=== PATIENT | male | born 1945 | race Hispanic/Latino ===

== ENCOUNTER → 2017-06-06 | Outpatient (CLI) | payer MEDICARE ==
--- NOTE | 2017-06-08 16:26 | RAD ---
EXAM DESCRIPTION: Hip,Right 2 Views CLINICAL HISTORY: 71 years Male, HIP PN COMPARISON: None. TECHNIQUE: AP and frog-leg views FINDINGS: Moderate osteoarthritis with superior joint space narrowing, periarticular sclerosis, and some lateral migration of the femoral head with respect to the acetabulum. No fractures. IMPRESSION: Moderate osteoarthritis No fractures Electronically signed by: Michael Souza 06/08/2017 4:25 PM CDT
--- NOTE | 2017-06-08 16:30 | RAD ---
EXAM DESCRIPTION: Pelvis CLINICAL HISTORY: 71 years Male, HIP PN COMPARISON: None. TECHNIQUE: AP pelvis FINDINGS: Status post left hip arthroplasty with well-seated acetabular and visualized femoral component. [id number] osteoarthritis right hip. No fractures. IMPRESSION: Left hip total arthroplasty [id number] osteoarthritis right hip No fractures Electronically signed by: Michael Souza 06/08/2017 4:29 PM CDT
== END | disposition home or self-care (01) ==
LOC: RAD 08:40
PROVIDERS: ATTEND Orthopaedic Surgery
DX: M25.551 Pain in right hip (principal)

== ENCOUNTER → 2017-06-20 | Outpatient (CLI) | payer MEDICARE | END | disposition home or self-care (01) | LOC: RESP 07:46 | PROVIDERS: ATTEND Orthopaedic Surgery | DX: Z01.818 Encounter for other preprocedural examination (principal) ==

== ENCOUNTER 2017-07-02 07:00 | Inpatient (IN) | payer MEDICARE, MEDICAID ==
--- NOTE | 2017-07-01 10:48 | HP ---
CHIEF COMPLAINT: Right hip pain. HISTORY OF PRESENT ILLNESS: Mr. Patel is a 71-year-old male with a history of pain in the right hip. It has been getting significantly worse. He has had left total hip replacement. He has failed conservative measures, and as such as requested operative intervention. He has occasional radiation of pain to the buttock region, but no radiation distally and no neurologic symptoms. He has never had any trauma related to this. Because of the ongoing symptoms, he has requested operative intervention. After discussing the risks, benefits and alternatives to that, the patient has given informed consent. PAST SURGICAL HISTORY: 1. Left total hip replacement. MEDICATIONS: 1. Lansoprazole. 2. Diclofenac. ALLERGIES: NO KNOWN DRUG ALLERGIES. CODE STATUS: Full code. IMMUNIZATIONS: Up to date. SOCIAL HISTORY: The patient does not drink, smoke or use any illicit drugs. FAMILY HISTORY: None pertinent to today's complaint. REVIEW OF SYSTEMS: Negative except as indicated in the History of Present Illness. PHYSICAL EXAMINATION: VITAL SIGNS: Blood pressure 137/87. Pulse 52. Height 5'6". MENTAL STATUS: The patient is awake, alert, and is able to give a good history and participate in the physical. The patient is oriented to person, place and time. SKIN: Normal tone and turgor. HEENT: Normocephalic, atraumatic. Pupils equal, round and reactive. Mucosal membranes are moist. NECK: Normal range of motion. No thyromegaly, no lymphadenopathy. CHEST: Normal respiratory excursion. CARDIAC: Regular rate and rhythm. No murmurs, rubs or gallops. MUSCULOSKELETAL: Bilateral upper extremities show full active range of motion. He has intact sensation throughout and they are warm and well perfused. Strength is 5/5. There is no deformity and no crepitus with range of motion. The left lower extremity shows flexion to about 100 degrees and abduction to about 20 to 30 degrees of the hip. He has essentially painless internal rotation to 20 degrees and external rotation to about 40 degrees. There is no malalignment. Sensation is intact. Strength is 5/5.. The right hip shows 0 degrees of internal rotation and he has obligate external rotation. He has severe tenderness with any attempted internal rotation. He has pain at 20 degrees of external rotation. He lacks about 5 to 10 degrees of terminal extension of the hip secondary to pain. He walks with a severe antalgic gait and is using a cane today. IMAGING: X-rays show severe arthritis of the hip. ASSESSMENT: 1. Osteoarthritis of the hip. PLAN: The plan at this point is for total hip arthroplasty. Through an student records coordinator, we have discussed the risks, benefits, and alternatives to that and the patient has given informed consent. #[id number] [facility]
[~2017-07-02 07:00] MED LIST: ACETAMINOPHEN IV 1000MG 100 ML ONE; BUPIVACAINE 0.25% INJ 30 ML VIAL INJ ONE; BUPIVACAINE 0.25% W/EPI 50 ML VIAL INJ ONE; LACTATED RINGERS 1,000 ML ONE; MIDAZOLAM INJ 2 MG/2 ML VIAL ONE; MORPHINE SULF *EPIDURAL* 1 MG/ML VIAL ONE; ROCURONIUM BROMIDE 10 MG/ML VIAL ONE; SODIUM CHL 0.9% 50ML MIN-BAG+ 50 ML IVPB ONE; SODIUM CHLORIDE 0.9% 100ML 100 ML IVPB ONE; SODIUM CHLORIDE 0.9% 250ML 250 ML ONE; TRANEXAMIC ACID 1,000 MG/10 ML VIAL ONE; VANCOMYCIN HCL INJ 1,000 MG VIAL IVPB ONE; ceFAZolin SODIUM 1 GM VIAL ONE; fentaNYL CITRATE INJ 50 MCG/ML AMP ONE
[2017-07-02] MEDS ORDERED: ELECTROLYTE-A 1,000 ML IVS ONE ×3 (07:54→08:56)
[2017-07-02] MEDS ORDERED: SODIUM CHLORIDE 0.9% 1000ML 1,000 ML ONE (08:38)
[2017-07-02] MEDS ORDERED: LIDOCAINE 1% 10 ML VIAL INJ ONE (10:00)
[2017-07-02] MEDS ORDERED: raNITIdine HCL INJ 25 MG/ML VIAL IV ONE (10:00)
[2017-07-02] MEDS ORDERED: PROPOFOL 200 MG/20 ML VIAL IV ONE (10:00)
[2017-07-02] MEDS ORDERED: DEXAMETHASONE INJ 10 MG/ML VIAL IV ONE (10:00)
[2017-07-02] MEDS ORDERED: ePHEDrine SULF 50 MG/ML IV ONE (10:00)
[2017-07-02] MEDS ORDERED: PROMETHAZINE HCL INJ 25 MG in SODIUM CHLORIDE 0.9% 50ML 50 ML IVPB PRN (10:02)
[2017-07-02] MEDS ORDERED: TEMAZEPAM 15 MG CAP PO PRN (10:02)
[2017-07-02] MEDS ORDERED: TRANEXAMIC ACID INJ 1,000 MG in SODIUM CHLORIDE 0.9% 100ML 100 ML IVPB ONE (10:02)
[2017-07-02] MEDS ORDERED: BISACODYL SUPPOSITORY 10 MG PR PRN (10:02)
[2017-07-02] MEDS ORDERED: CYCLOBENZAPRINE HCL 10 MG TAB PO PRN (10:02)
[2017-07-02] MEDS ORDERED: traMADol HCL 50 MG TAB PO PRN (10:02)
[2017-07-02] MEDS ORDERED: ACETAMINOPHEN 500 MG TAB PO PRN (10:02)
[2017-07-02] MEDS ORDERED: DEX 5% W/NACL 0.45% 1000ML 1,000 ML IVS PRN (10:02)
[2017-07-02] MEDS ORDERED: MORPHINE SULFATE INJ 10 MG/ML VIAL IV PRN (10:02)
[2017-07-02] MEDS ORDERED: NALOXONE HCL INJ 0.4 MG/ML VIAL IV PRN (10:02)
[2017-07-02] MEDS ORDERED: PROMETHAZINE HCL INJ 12.5 MG in SODIUM CHLORIDE 0.9% 50ML 50 ML IVPB PRN (10:02)
[2017-07-02] MEDS ORDERED: BENZOCAINE-MENTH LOZ (CEPACOL) 1 EA LOZ MT PRN (10:02)
[2017-07-02] MEDS ORDERED: ACETAMINOPHEN 325 MG TAB PO PRN (10:02)
[2017-07-02] MEDS ORDERED: ZOLPIDEM TARTRATE 5 MG TAB PO PRN (10:02)
[2017-07-02] MEDS ORDERED: MORPHINE SULFATE INJ 10 MG/ML VIAL IM PRN (10:02)
[2017-07-02] MEDS ORDERED: SODIUM CHLORIDE 0.9% (FLUSH) 10 ML SYG IV PRN (10:02)
[2017-07-02] MEDS ORDERED: MAGNESIUM HYDROXIDE 30 ML UD PO PRN (10:02)
[2017-07-02] MEDS ORDERED: ONDANSETRON INJ 4 MG/2 ML VIAL IV PRN (10:02)
[2017-07-02] MEDS ORDERED: MORPHINE PCA 1 MG/ML 100ML 1 BAG in PREMIX BAG 1 BAG IVPB SCH (10:30)
[2017-07-02] MEDS ORDERED: IV SET AND CAP CHANGE INJ INJ SCH (10:30)
--- NOTE | 2017-07-02 13:16 | CONS ---
SUPERVISING PHYSICIAN: Guerrero Chua MD DATE OF CONSULTATION: 07/02/17 CHIEF COMPLAINT: Right hip pain. HISTORY OF PRESENT ILLNESS: This is a 71-year-old male patient with a history of pain in his right hip. It has significantly worsened over the last few years. He has previously had a left total hip replacement. He failed conservative measures and requested operative intervention for right total hip replacement to be done per Dr. Ludwig Epsetin, orthopedic surgeon. His surgical procedure went well with the exception that he did have to have 2 units of packed red blood cells, and I am seeing him postoperatively on the Medical/ Surgical Floor. PAST MEDICAL HISTORY: 1. Gastritis. 2. Arthritis. PAST SURGICAL HISTORY: 1. Left total hip replacement. 2. Right total hip replacement today. CURRENT MEDICATIONS: Per the EMR and awaiting verification. ALLERGIES: NO KNOWN DRUG ALLERGIES. SOCIAL HISTORY: He denies any tobacco use, ETOH use or illicit drug use. FAMILY HISTORY: NONCONTRIBUTORY. REVIEW OF SYSTEMS: Negative except as per history of present illness. PHYSICAL EXAMINATION: VITAL SIGNS: Afebrile. Heart rate 74. Blood pressure 125/74. Respiratory rate 16. O2 saturation 99% on room air. GENERAL: This is a 71-year-old male patient who is lying in his hospital bed. He is in no acute distress. He can answer in Palestinian simple yes/no questions. Otherwise, his family is there to translate into Czech. HEENT: Normocephalic, atraumatic. Pupils are equal and reactive. Oropharynx is clear. NECK: Supple without mass. RESPIRATORY: Clear to auscultation bilaterally. CARDIOVASCULAR: Regular rate and rhythm. ABDOMEN: Soft, nondistended, nontender. Bowel sounds are positive. EXTREMITIES: He has a dressing to his right hip that is dry and intact. Bilateral pedal pulses are palpable at +2. There is no edema. NEUROLOGIC: Awake, alert and oriented times three. LABORATORY: Hemoglobin 12.1, hematocrit 36.5. All other labs and films have been reviewed via the EMR. ASSESSMENT: 1. Osteoarthritis of the right hip, failed conservative measures with a right total hip replacement per Dr. Ludwig Epstein, orthopedic surgeon, postoperative day 0. 2. Gastritis. 3. Anemia from operative blood loss requiring 2 units of packed red blood cells. PLAN: We will continue present supportive care. Orthopedic issues will be per Dr. Epstein. He will be his strengthening and conditioning tomorrow with physical therapy. I will re-start his home medications. I have encouraged good pulmonary hygiene as well as use of his incentive spirometry. We will continue to monitor the patient closely and follow as needed. Dr. Chua is the collaborating physician and available for consultation. #[id number] [facility]
[2017-07-02] MEDS ORDERED: CEFAZOLIN SODIUM 2 GRAMS IV 50 ML IVPB ONE ×2 (15:55→19:43)
[2017-07-02] MEDS: CEFAZOLIN SODIUM 2 GRAMS IV 2 GM in PREMIX BAG 1 BAG IVPB SCH ×2 (16:00→23:49)
[2017-07-02] MEDS ORDERED: VANCOMYCIN HCL INJ 1,000 MG VIAL IVPB ONE ×2 (18:28→19:43)
[2017-07-02] MEDS ORDERED: SODIUM CHLORIDE 0.9% 250ML 250 ML ONE ×2 (18:28→19:42)
[2017-07-02] MEDS: VANCOMYCIN HCL INJ 1,000 MG in SODIUM CHLORIDE 0.9% 250ML 250 ML IVPB SCH (18:36)
[2017-07-02] MEDS: CELECOXIB 100 MG CAP PO SCH (18:36)
[2017-07-02] MEDS ORDERED: DOCUSATE CALCIUM 240 MG CAP ONE (19:42)
[2017-07-02] MEDS ORDERED: ENOXAPARIN SODIUM 30 MG/0.3 ML SYG SUBCU ONE (19:43)
[2017-07-02] MEDS: DOCUSATE CALCIUM 240 MG CAP PO SCH (20:43)
[2017-07-02] MEDS: ENOXAPARIN SODIUM 30 MG/0.3 ML SYG SUBCU SCH (22:45)
[2017-07-02] MEDS: ALUMINUM & MAGNESIUM HYDROXIDE 30 ML UD PO PRN (22:52)
[2017-07-03] MEDS: ALUMINUM & MAGNESIUM HYDROXIDE 30 ML UD PO PRN (05:13)
[2017-07-03] MEDS: VANCOMYCIN HCL INJ 1,000 MG in SODIUM CHLORIDE 0.9% 250ML 250 ML IVPB SCH (06:01)
[2017-07-03] MEDS ORDERED: CEFAZOLIN SODIUM 2 GRAMS IV 50 ML IVPB ONE (07:52)
[2017-07-03] MEDS: CELECOXIB 100 MG CAP PO SCH ×2 (08:21→17:11)
[2017-07-03] MEDS: CEFAZOLIN SODIUM 2 GRAMS IV 2 GM in PREMIX BAG 1 BAG IVPB SCH (08:21)
[2017-07-03] MEDS ORDERED: chlorproMAZINE HCL 25 MG TAB PO PRN ×2 (08:31→11:08)
[2017-07-03] MEDS ORDERED: LANSOPRAZOLE 30 MG PO SCH (09:00)
[2017-07-03] MEDS ORDERED: OMEPRAZOLE CAP 20 MG CAP PO SCH (09:00)
[2017-07-03] MEDS: MAGNESIUM OXIDE 400 MG TAB PO SCH (09:31)
[2017-07-03] MEDS: ENOXAPARIN SODIUM 30 MG/0.3 ML SYG SUBCU SCH ×2 (11:56→23:18)
[2017-07-03] MEDS: SODIUM CHLORIDE 0.9% (FLUSH) 10 ML SYG IV SCH ×2 (11:56→21:04)
[2017-07-03] MEDS: HYDROcodone 5MG/APAP 325MG 1 EA TAB PO PRN (12:42)
[2017-07-03] MEDS ORDERED: ALUM & MAG HYDROX-SIMETHICONE 30 ML UD PO PRN (12:50)
--- NOTE | 2017-07-03 13:36 | PN ---
SUPERVISING PHYSICIAN: Guerrero Chua MD DATE: 07/03/17 SUBJECTIVE: The patient is sitting up in a chair in his room. His chief complaint is hiccups and some indigestion. Otherwise, no complaints of nausea, vomiting, diarrhea. He has actually had very little pain medication since surgery and has walked in the hallway several times this morning. OBJECTIVE: VITAL SIGNS: Temperature 99.2. Pulse rate 86. Blood pressure 97/ 54. Respiratory rate 18. O2 saturation 97% on room air. LUNGS: Clear to auscultation bilaterally. CARDIAC: Regular rate and rhythm. ABDOMEN: Soft, nondistended, nontender. Bowel sounds are positive. EXTREMITIES: There is a dressing to his right hip that is dry and intact. Bilateral pedal pulses are palpable at +2. NEUROLOGIC: Awake, alert and oriented times three. LABORATORY: Hemoglobin 10.4, hematocrit 31.1. All other labs and films have been reviewed via the EMR. ASSESSMENT: 1. Osteoarthritis of the right hip, failed conservative measures with a right total hip replacement per Dr. Ludwig Epstein, orthopedic surgeon, postoperative day 1. 2. History of gastritis. 3. Anemia from operative blood loss requiring 2 units of packed red blood cells. 4. Hiccups. 5. Some acid reflux. PLAN: We will continue present supportive care. Orthopedic issues will be per Dr. Epstein. He will continue with his physical therapy for strengthening and conditioning. I have increased his Thorazine for his hiccups as well as given him some Mylanta and Pepcid for his indigestion. I have also ordered a hemoglobin and hematocrit for in the morning. I have encouraged good pulmonary hygiene as well as talked to his family about him using his incentive spirometry. Otherwise, we will continue to monitor the patient closely and follow as needed. Dr. Chua is the collaborating physician and available for consultation. #[id number] [facility]
--- NOTE | 2017-07-03 16:39 | RAD ---
EXAM DESCRIPTION: Hip,Right 2 Views CLINICAL HISTORY: 71 years, Male, post op COMPARISON: None TECHNIQUE: AP and frog leg lateral views of the hip FINDINGS: Total hip replacement in excellent position. No complicating operative process observed. IMPRESSION: 1. Postop no complication Electronically signed by: Daniel Love MD 07/03/2017 4:38 PM CDT
--- NOTE | 2017-07-03 16:42 | RAD ---
EXAM DESCRIPTION: AP pelvis, single view CLINICAL HISTORY: Right total hip arthroplasty FINDINGS/ IMPRESSION: Bilateral total hip arthroplasty. No periprosthetic fracture or osteolysis. Air in the soft tissues on the right from recent surgery. No radiopaque foreign body Electronically signed by: Silas Edward MD 07/03/2017 4:39 PM CDT
[2017-07-03] MEDS: FAMOTIDINE 20 MG TAB PO SCH (17:12)
[2017-07-03] MEDS: DOCUSATE CALCIUM 240 MG CAP PO SCH (20:45)
[2017-07-04] MEDS: FAMOTIDINE 20 MG TAB PO SCH ×2 (06:30→16:42)
[2017-07-04] MEDS: CELECOXIB 100 MG CAP PO SCH ×2 (07:45→16:42)
--- NOTE | 2017-07-04 08:33 | OP ---
DATE OF PROCEDURE: 07/02/17 PREOPERATIVE DIAGNOSIS: 1. Right hip osteoarthritis. POSTOPERATIVE DIAGNOSIS: 1. Right hip osteoarthritis. PROCEDURE: 1. Right total hip arthroplasty. SURGEON: Ludwig Epstein MD. PIPE LINE REPAIRER: Ra Pickard CST, SA-C. ANESTHESIA: General. COMPLICATIONS: None. FINDINGS: Severe osteoarthritis of the hip. INDICATION: Mr. Patel has a history of severe hip pain. He has had this going on for years and has actually had contralateral total hip replacement. He currently complains of pain that is predominantly in the groin. Because of failure of conservative measures, he has requested operative intervention. After discussing the risks, benefits and alternatives to that, the patient has given informed consent for total hip arthroplasty. PROCEDURE: The patient was brought to the Operating Room and placed in supine position. General anesthesia was induced and the patient was turned into the lateral decubitus position. The patient's leg and hemipelvis were sterilely prepped and draped. Following prepping and draping, an incision was made at the level of the greater trochanter and extending both proximally and distally. The iliotibial band was identified and split in line along the course of its fibers. The abductor musculature was identified. The anterior one-third of the abductor musculature was elevated. Capsulotomy was performed. The hip was dislocated and primary femoral neck cut was made. The acetabular labrum and remaining soft tissue around the acetabular region was removed. Sequential reaming was performed and a size 51 reamer fit well. A size 52 trial was impacted into place and was found to be stable. That cup was removed and bone graft that had been harvested from the head was placed into the acetabulum. Following that, the final cup was impacted into place. After impaction of the cup, three screws were used to augment the fixation. The polyethylene liner was then impacted. Attention was then focused on the femur. The final femoral neck cut was made. Sequential reaming and broaching were used and a size 8 was found to fit well. Following impaction of that, the hip was reduced and taken through a range of motion. The leg lengths appeared to be equal and there was no evidence any impending dislocation or impingement. The trial component was removed and the final component was impacted into place. The hip was reduced and again taken through a range of motion. Following that, the wound was very thoroughly irrigated and the abductor musculature was reapproximated to the anatomic position. The iliotibial band was closed. The skin was closed with a combination of running and interrupted subcuticular stitches. Sterile dressings were placed. The patient was awoken from anesthesia. The patient was taken to the Recovery Room. POSTOPERATIVE INSTRUCTIONS: The patient will be partial weightbearing on postoperative day 1. COMPONENTS: Dinora size 8 femur, size 52 Tritanium cup, and 10 degree liner. #[id number] [facility] [place]
[2017-07-04] MEDS: MAGNESIUM OXIDE 400 MG TAB PO SCH (08:34)
[2017-07-04] MEDS ORDERED: SODIUM CHLORIDE 0.9% (FLUSH) 10 ML SYG IV SCH (09:00)
[2017-07-04] MEDS: PANTOPRAZOLE SODIUM TAB 40 MG PO SCH (11:07)
[2017-07-04] MEDS: ENOXAPARIN SODIUM 30 MG/0.3 ML SYG SUBCU SCH ×2 (11:07→23:23)
--- NOTE | 2017-07-04 19:35 | PN ---
DATE: 07/04/17 SUPERVISING PHYSICIAN: Guerrero Chua M.D. SUBJECTIVE: The patient is lying in his bed. His family is at the bedside. He has no complaints of pain, nausea, vomiting, diarrhea or constipation. He had hiccups yesterday as well as acid indigestion and he feels much better today. OBJECTIVE: VITAL SIGNS: He is afebrile, heart rate 89, blood pressure 97/61, respiratory rate 18, O2 sat is 96% on room air. RESPIRATORY: Essentially clear to auscultation bilaterally. CARDIAC: Regular rate and rhythm. ABDOMEN: Soft, nondistended, non-tender. Bowel sounds are positive. EXTREMITIES: Bilateral pedal pulses are palpable at +2. The dressing to his right hip is dry and intact. NEUROLOGIC: He is awake, alert and oriented times three. LABORATORY: Hemoglobin has dropped to 9.3 from 10.4 yesterday and his hematocrit has dropped from 31.1 to 26.9 today. All other labs and films have been reviewed via the EMR. ASSESSMENT: 1. Osteoarthritis of the right hip failed conservative measures with a right total hip replacement per Dr. Ludwig Epstein, orthopedic surgeon, postoperative day #2. 2. History of gastritis. 3. Anemia from operative blood loss requiring 2 units of packed red blood cells and his H&H continues to slowly drop. 4. Hiccups that have mostly resolved. 5. Acid reflux. PLAN: We will continue present supportive care. Orthopedic issues will be per Dr. Epstein. The patient will continue with his physical therapy for strengthening and conditioning. I have again ordered an H&H in the morning to make sure that has stabilized. Hopefully he can be discharged home tomorrow with [facility] and physical therapy. I continue to encourage good pulmonary hygiene. His family said that the Pepcid worked very well on him and would like to make sure he goes home on a prescription for that medication. Otherwise we will continue to monitor him closely and follow as needed. Dr. Chua is the collaborating physician available for consultation. #[id number] [facility]
[2017-07-04] MEDS: SODIUM CHLORIDE 0.9% (FLUSH) 10 ML SYG IV SCH (20:57)
[2017-07-04] MEDS: DOCUSATE CALCIUM 240 MG CAP PO SCH (20:57)
[2017-07-04] MEDS: HYDROcodone 5MG/APAP 325MG 1 EA TAB PO PRN (20:59)
[2017-07-05] MEDS: FAMOTIDINE 20 MG TAB PO SCH (06:22)
[2017-07-05] MEDS: PANTOPRAZOLE SODIUM TAB 40 MG PO SCH (06:22)
[2017-07-05] MEDS: CELECOXIB 100 MG CAP PO SCH (08:05)
[2017-07-05] MEDS: MAGNESIUM OXIDE 400 MG TAB PO SCH (10:17)
[2017-07-05 10:21] VITALS: BP 110/73; TEMP 97.7; O2SAT 100
--- NOTE | 2017-07-05 19:51 | DS ---
SUPERVISING PHYSICIAN: Guerrero Chua M.D. DISCHARGE DIAGNOSIS: 1. Osteoarthritis of the right hip failed conservative measures with a right total hip replacement per Dr. Ludwig Epstein, orthopedic surgeon, postoperative day #3. 2. History of gastritis. 3. Anemia from operative blood loss requiring 2 units of packed red blood cells and his H&H has slightly improved this morning. 4. Hiccups that have mostly resolved. 5. Acid reflux. HISTORY OF PRESENT ILLNESS: This is a 71 year-old male patient with a significant history of pain in his right hip. It has worsened over the last few years. He had previously had a left total hip replacement. He failed conservative measures and requested operative intervention for right total hip replacement that was done by Dr. Ludwig Epstein, orthopedic surgeon, on the day of admission. The surgical procedure went well with the exception that he did have some blood loss due to the surgical procedure and required 2 units of packed red blood cells. HOSPITAL COURSE: Postoperatively, his physical therapy progressed very well. He had very minimal complaints of pain. He did have an episode of hiccups that required some Thorazine for relief. He also had some acid reflux symptoms that we added Pepcid to his Protonix regimen. He has continued with his physical therapy for strengthening and conditioning. Yesterday his hemoglobin had dropped to 8.8, but this morning it is now 9.3. He will be discharged home. DISCHARGE PLAN: The patient will be discharged home in stable condition. He is to followup with Dr. Epstein as previously recommended. He will continue at home with [facility] and physical therapy. He is to resume his previous diet and he is to increase his activity as per instructions of Physical Therapy. He has received a prescription for his Xarelto for a total of 35 days of anticoagulant therapy. He will also be sent home with his pain medications as well as some Flexeril. I have also given him a prescription for Pepcid. He is to call Dr. Epstein's office or return to the hospital for any problems or complications. DISCHARGE MEDICATIONS: 1. Lansoprazole. 2. Cyclobenzaprine. 3. Surfak. 4. Pepcid. 5. Hydrocodone. 6. Xarelto. Dr. Chua is the collaborating physician available for consultation. #[id number] [facility]
[2017-07-05] MEDS ORDERED: MAGNESIUM HYDROXIDE 30 ML UD PO ONE (21:00)
[2017-07-05] MEDS ORDERED: BISACODYL SUPPOSITORY 10 MG PR ONE (21:00)
== END 2017-07-05 13:20 | disposition home health service (06) | DRG 470 ==
LOC: AMB 07:00 → UNDOADMIN 11:20 → MS 11:20
PROVIDERS: ADMIT Orthopaedic Surgery; ATTEND Nurse Practitioner Acute Care
PROC: 30233N1 Transfusion of Nonautologous Red Blood Cells into Peripheral Vein, Percutaneous Approach (ICD-10-PCS; 2017-07-02)
PROC: 0SR902A Replacement of Right Hip Joint with Metal on Polyethylene Synthetic Substitute, Uncemented, Open Approach (ICD-10-PCS; principal; 2017-07-02 07:00)
DX: M16.11 Unilateral primary osteoarthritis, right hip (principal); D62 Acute posthemorrhagic anemia; R06.6 Hiccough; K21.9 Gastro-esophageal reflux disease without esophagitis; Z79.899 Other long term (current) drug therapy; Z96.642 Presence of left artificial hip joint

== ENCOUNTER → 2018-02-03 | Outpatient (CLI) | payer MEDICARE, MEDICAID ==
--- NOTE | 2018-02-04 09:50 | RAD ---
EXAM DESCRIPTION: Lumbar Spine 3 Views CLINICAL HISTORY: 72 years Male, LOW BACK PAIN COMPARISON: Radiograph of the lumbar spine dated 05/10/2013. TECHNIQUE: AP and lateral radiographs of the lumbar spine were obtained. FINDINGS: There is straightening of the normal lordotic curvature of the lumbar spine. The vertebral body heights are well-maintained with no acute compression. Multilevel degenerative disc disease is noted, worse at L5-S1 level. Multilevel facet arthropathy is also identified. No spondylolysis or spondylolisthesis. Incidental note is made of mild constipation. 2 cm peripherally calcified lesion is identified in the left upper quadrant. This corresponds to the peripherally calcified cyst of the left kidney seen on prior CT. IMPRESSION: Multilevel degenerative disc disease and facet arthropathy is noted, worse at L5-S1 level. These changes appear to have progressed compared to prior radiographs dated 05/10/2013. Electronically signed by: Lilia Lyn MD 02/04/2018 9:49 AM CDT
== END ==
LOC: RAD 16:27
PROVIDERS: ATTEND Nurse Practitioner Family
DX: M51.36 Other intervertebral disc degeneration, lumbar region (principal); M54.5 Low back pain

== ENCOUNTER → 2018-05-20 | Outpatient (CLI) | payer MEDICARE, MEDICAID ==
--- NOTE | 2018-05-20 09:13 | RAD ---
EXAM DESCRIPTION: Hip Bilateral CLINICAL HISTORY: HIP PAIN COMPARISON: July 02, 2017 And June 06, 2017 FINDINGS: 2 views of both hips are obtained. Noncemented right total hip arthroplasty is seen with 2 screws fixating the acetabular component. No acute fracture or dislocation is seen. Heterotopic ossification lateral to the greater trochanter is new from previous. Left hip bipolar noncemented total hip arthroplasty seen in place with 3 screws fixating the acetabular component. No fracture or dislocation is seen. Mild heterotopic calcification medial to the greater trochanter is unchanged from previous. IMPRESSION: Bilateral total hip arthroplasties are seen without complicating features. Electronically signed by: Femi Escamilla MD 05/20/2018 9:12 AM CDT
== END ==
LOC: YCFC.O 07:15
PROVIDERS: ATTEND Family Medicine
DX: N40.0 Benign prostatic hyperplasia without lower urinary tract symptoms (principal); M15.9 Polyosteoarthritis, unspecified; E78.5 Hyperlipidemia, unspecified; R53.83 Other fatigue; Z79.899 Other long term (current) drug therapy; Z96.643 Presence of artificial hip joint, bilateral

== ENCOUNTER → 2018-05-26 | Outpatient (CLI) | payer MEDICARE, MEDICAID | LOC: LAB.O 16:07 | PROVIDERS: ATTEND Family Medicine | DX: R35.1 Nocturia (principal) ==

== ENCOUNTER → 2018-06-03 | Outpatient (CLI) | payer MEDICARE, MEDICAID | LOC: YCFC.O 16:38 → MERGE 16:38 | PROVIDERS: ATTEND Family Medicine | DX: R94.6 Abnormal results of thyroid function studies (principal); D64.9 Anemia, unspecified; R53.83 Other fatigue; D52.9 Folate deficiency anemia, unspecified; E53.9 Vitamin B deficiency, unspecified ==

== ENCOUNTER → 2019-05-07 | Outpatient (CLI) | payer MEDICARE, MEDICAID ==
--- NOTE | 2019-05-08 05:57 | US ---
EXAM DESCRIPTION: Gall Bladder: ULTRASOUND. CLINICAL HISTORY: EPIGASTRIC PAIN COMPARISON: None. TECHNIQUE: Transabdominal scanning: Lassiter-scale and Doppler modes. FINDINGS: Gallbladder: Small and containing echogenic stones. The largest stone with acoustic shadowing in diameter 3.3 cm. No fluid around the gallbladder. No wall thickening. 2 mm. Non-tender with transducer pressure. Common bile duct: caliber 6.8 mm mildly dilated. Liver: Mildly increased echogenicity; contour liver capsule smooth where seen. No fluid around the liver. Intrahepatic biliary ducts normal caliber. Doppler hepatopedal flow portal vein.. Long axis right lobe 16.2 cm Pancreas: normal size and echogenicity. Duct not seen. Aorta: 2.1 cm proximal diameter normal. Right kidney: 10 cm long axis. Normal cortical echogenicity and minimal cortical thinning. Smooth capsule. No hydronephrosis, no echogenic stones, no perirenal fluid.. IMPRESSION: 1. Multiple gallstones with the largest measuring 3.3 cm. Nontender with transducer pressure. No wall thickening or fluid. Common bile duct minimally dilated 6.8 mm. Consider correlation with hepatobiliary radionuclide imaging for gallbladder function. 2. Mild steatosis of the liver. Normal size, normal ducts and portal venous flow direction. Smooth capsule and no ascites. Pancreas unremarkable. 3. Minimal age-related changes to the right kidney otherwise negative. Aorta proximal normal caliber. Electronically signed by: Ra Verduzco MD 05/08/2019 5:56 AM CDT
== END ==
LOC: US 09:00
PROVIDERS: ATTEND Nurse Practitioner Family
DX: Z00.00 Encounter for general adult medical examination without abnormal findings (principal); K80.20 Calculus of gallbladder without cholecystitis without obstruction; K76.0 Fatty (change of) liver, not elsewhere classified; D50.9 Iron deficiency anemia, unspecified; E53.8 Deficiency of other specified B group vitamins; E03.9 Hypothyroidism, unspecified; E78.5 Hyperlipidemia, unspecified